=== PATIENT | male | born 1960 | race Caucasian/White ===

== ENCOUNTER 2017-11-07 13:17 | Inpatient (IN) | payer OTHER ==
[~2017-11-07] VITALS: Ht 162.6 cm; Wt 69.1 kg
[2017-11-07] VITALS (14 sets, daily range): BP systolic 94–140; BP diastolic 60–96
[2017-11-07 13:58] LABS: INTER. NORMALIZED RATIO 1.5
[2017-11-07 14:00] LABS: HEMATOCRIT 19.3 % (38.0-50.0); MCH 27.7 PG (29.0-34.0); MCHC 32.1 G/DL (30.0-36.0); MCV 86.2 FL (86-99); PLATELET COUNT 293 K/uL (156-360); RBC DIS.WIDTH-CV 16.1 % (11.8-14.6); RBC DIS.WIDTH-SD 50.4 % (39-53); RED BLOOD COUNT 2.24 M/uL (4.00-5.50); WHITE BLOOD COUNT 26.2 K/uL (4.1-10.2)
[2017-11-07 14:01] LABS: HEMOGLOBIN 6.2 G/DL (12.5-16.6)
[2017-11-07 14:03] LABS: ALBUMIN 2.3 g/dL (3.2-4.8); CHLORIDE 107 mEq/L (99-109); POTASSIUM 5.8 mEq/L (3.7-5.4); SODIUM 140 mEq/L (136-147)
[2017-11-07 14:05] LABS: GLUCOSE 94 mg/dL (70-99)
[2017-11-07 14:07] LABS: TOTAL BILIRUBIN 0.7 mg/dL (0.0-1.0)
[2017-11-07 14:09] LABS: ALKALINE PHOSPHATASE 66 IU/L (3-129); CREATININE 1.9 mg/dL (0.6-1.3)
[2017-11-07 14:10] LABS: UREA NITROGEN (BUN) 73 mg/dL (9-23)
[2017-11-07 14:11] LABS: AST (GOT) 31 IU/L (2-34)
[2017-11-07 14:12] LABS: TROP-I INTERPRETATION NEGATIVE; TROPONIN-I 0.01 ng/mL (0.0-0.30)
[2017-11-07 14:12] LABS: ALT (GPT) 18 IU/L (3-49)
[2017-11-07 14:14] LABS: GFR ESTIMATE (CALCULATED) 39 mL/min/ (58.99-99999)
[2017-11-07] MEDS ORDERED: ADVIL,NUPRIN,M200 MG PO (16:19)
[2017-11-07] MEDS ORDERED: ALDACTONE25 MG PO (16:19)
[2017-11-07] MEDS ORDERED: OXYCODONE HCL5 MG PO (16:19)
[2017-11-07] MEDS ORDERED: INDERAL10 MG PO (16:20)
[2017-11-07] MEDS ORDERED: ADULT ASPIRIN R81 MG PO (16:20)
[2017-11-07] MEDS ORDERED: PROTONIX40 MG PO (16:20)
[2017-11-08] VITALS (25 sets, daily range): BP systolic 85–139; BP diastolic 44–85
[2017-11-08 05:47] LABS: INTER. NORMALIZED RATIO 1.4
[2017-11-08 05:50] LABS: HEMATOCRIT 31.7 % (38.0-50.0); HEMOGLOBIN 10.5 G/DL (12.5-16.6); MCHC 33.1 G/DL (30.0-36.0); MCV 87.6 FL (86-99); NRBC (%) 0.1 /100 WBC (0-0); PLATELET COUNT 241 K/uL (156-360); RBC DIS.WIDTH-CV 15.1 % (11.8-14.6); RED BLOOD COUNT 3.62 M/uL (4.00-5.50); WHITE BLOOD COUNT 20.1 K/uL (4.1-10.2)
[2017-11-08 06:11] LABS: ALBUMIN 2.5 G/DL (3.2-4.8); ALKALINE PHOSPHATASE 72 IU/L (3-129); ALT (GPT) 17 IU/L (3-49); AST (GOT) 30 IU/L (2-34); CHLORIDE 108 MEQ/L (99-109); GLUCOSE 98 mg/dL (70-99); SODIUM 141 MEQ/L (136-147); TOTAL BILIRUBIN 1.7 MG/DL (0.0-1.0); TOTAL PROTEIN 5.7 G/DL (6.4-8.3); UREA NITROGEN (BUN) 52 mg/dL (9-23)
[2017-11-08 06:14] LABS: CREATININE 1.2 MG/DL (0.6-1.3); GFR ESTIMATE (CALCULATED) > 59 mL/min/ (58.99-99999); POTASSIUM 4.1 MEQ/L (3.7-5.4)
[2017-11-08 19:03] LABS: HEMATOCRIT 33.1 % (38.0-50.0); MCH 29.1 PG (29.0-34.0); MCHC 33.2 G/DL (30.0-36.0); MCV 87.6 FL (86-99); PLATELET COUNT 229 K/uL (156-360); RBC DIS.WIDTH-CV 15.4 % (11.8-14.6); RBC DIS.WIDTH-SD 49.2 % (39-53); RED BLOOD COUNT 3.78 M/uL (4.00-5.50); WHITE BLOOD COUNT 21.9 K/uL (4.1-10.2)
[2017-11-08 19:52] LABS: ABS NEUTROPHIL COUNT 19.8; BAND NEUTROPHILS 58.3 % (0-8.0); BURR CELLS 1+; EOSINOPHIL ABS CT 0.3; EOSINOPHILS 1.3 % (0-5.0); METAMYELOCYTES 1.3 %; MONOCYTES 3.4 % (0-9.0); MYELOCYTES 0.4 %; PLAT.SUFFICIENCY ADEQUATE; POIKILOCYTOSIS 1+; SEG.NEUTROPHILS 32.3 % (46.0-76.0)
[2017-11-09] VITALS (17 sets, daily range): BP systolic 105–132; BP diastolic 52–76
[2017-11-09 05:59] LABS: ALKALINE PHOSPHATASE 58 IU/L (3-129); ALT (GPT) 13 IU/L (3-49); AST (GOT) 22 IU/L (2-34); CHLORIDE 109 MEQ/L (99-109); CREATININE 0.8 MG/DL (0.6-1.3); GFR ESTIMATE (CALCULATED) > 59 mL/min/ (58.99-99999); GLUCOSE 103 mg/dL (70-99); MAGNESIUM 1.5 mg/dl (1.3-2.7); POTASSIUM 3.5 MEQ/L (3.7-5.4); SODIUM 140 MEQ/L (136-147); TOTAL PROTEIN 4.9 G/DL (6.4-8.3); UREA NITROGEN (BUN) 26 mg/dL (9-23)
[2017-11-09 06:09] LABS: ABS NEUTROPHIL COUNT 16.8; EOSINOPHIL ABS CT 0; GIANT PLATELETS 1+; HEMATOCRIT 28.5 % (38.0-50.0); HEMOGLOBIN 9.5 G/DL (12.5-16.6); LYMPHOCYTES 1.7 % (15.0-45.0); MCHC 33.3 G/DL (30.0-36.0); MCV 86.9 FL (86-99); PLAT.SUFFICIENCY ADEQUATE; PLATELET COUNT 205 K/uL (156-360); RBC DIS.WIDTH-CV 15.8 % (11.8-14.6); RBC DIS.WIDTH-SD 49.6 % (39-53); RED BLOOD COUNT 3.28 M/uL (4.00-5.50); WHITE BLOOD COUNT 17.1 K/uL (4.1-10.2)
[2017-11-09 06:10] LABS: BAND NEUTROPHILS 17.4 % (0-8.0); SEG.NEUTROPHILS 80.9 % (46.0-76.0)
[2017-11-09 18:26] LABS: INTER. NORMALIZED RATIO 1.7
[2017-11-09 18:29] LABS: PTT 36.5 SEC (25-37)
[2017-11-10] VITALS (9 sets, daily range): BP systolic 91–124; BP diastolic 52–92
[2017-11-10 06:10] LABS: HEMATOCRIT 32.1 % (38.0-50.0); HEMOGLOBIN 10.5 G/DL (12.5-16.6); MCH 28.8 PG (29.0-34.0); MCHC 32.7 G/DL (30.0-36.0); MCV 88.2 FL (86-99); PLATELET COUNT 203 K/uL (156-360); RBC DIS.WIDTH-CV 16.3 % (11.8-14.6); RBC DIS.WIDTH-SD 51.2 % (39-53); RED BLOOD COUNT 3.64 M/uL (4.00-5.50); WHITE BLOOD COUNT 12.9 K/uL (4.1-10.2)
[2017-11-10 06:40] LABS: BASOPHIL (%) 0.5 % (0-1); BASOPHIL COUNT 0.1 K/uL (0-0.1); EOSINOPHIL (%) 1.9 % (0-5); EOSINOPHIL COUNT 0.2 K/uL (0-0.3); IMMATURE GRANULOCYTE (%) 0.9 % (0.0-0.7); LYMPHOCYTE (%) 16.4 % (15-42); LYMPHOCYTE COUNT 2.1 K/uL (1.0-2.8); MONOCYTE (%) 6.3 % (3-12); MONOCYTE COUNT 0.8 K/uL (0-0.8); NEUTROPHIL COUNT 9.5 K/uL (1.8-6.4)
[2017-11-10 06:41] LABS: ALKALINE PHOSPHATASE 62 IU/L (3-129); ALT (GPT) 14 IU/L (3-49); AST (GOT) 24 IU/L (2-34); CHLORIDE 108 MEQ/L (99-109); CREATININE 0.9 MG/DL (0.6-1.3); GFR ESTIMATE (CALCULATED) > 59 mL/min/ (58.99-99999); GLUCOSE 93 mg/dL (70-99); POTASSIUM 3.4 MEQ/L (3.7-5.4); SODIUM 140 MEQ/L (136-147); TOTAL PROTEIN 5.2 G/DL (6.4-8.3); UREA NITROGEN (BUN) 18 mg/dL (9-23)
[2017-11-10 06:42] LABS: TOTAL BILIRUBIN 3.5 MG/DL (0.0-1.0)
[2017-11-10 14:35] LABS: HEMATOCRIT 30.5 % (38.0-50.0); HEMOGLOBIN 10.1 G/DL (12.5-16.6); MCH 29.7 PG (29.0-34.0); MCHC 33.1 G/DL (30.0-36.0); MCV 89.7 FL (86-99); PLATELET COUNT 180 K/uL (156-360); RBC DIS.WIDTH-CV 16.7 % (11.8-14.6); RBC DIS.WIDTH-SD 53.5 % (39-53); WHITE BLOOD COUNT 12.2 K/uL (4.1-10.2)
[2017-11-10 15:04] LABS: ABS NEUTROPHIL COUNT 10.8; ANISOCYTOSIS 1+; ATYPICAL LYMPHOCYTE 0.9 %; BAND NEUTROPHILS 28.9 % (0-8.0); BURR CELLS 1+; EOSINOPHIL ABS CT 0; LYMPHOCYTES 1.8 % (15.0-45.0); MACROCYTES 1+; MONOCYTES 8.8 % (0-9.0); PLAT.SUFFICIENCY ADEQUATE; POIKILOCYTOSIS 1+; POLYCHROMASIA 1+
[2017-11-10 15:06] LABS: SEG.NEUTROPHILS 59.6 % (46.0-76.0)
[2017-11-11 04:39] VITALS: BP 120/65
[2017-11-11 06:13] LABS: BASOPHIL COUNT 0.1 K/uL (0-0.1); EOSINOPHIL (%) 3.8 % (0-5); EOSINOPHIL COUNT 0.3 K/uL (0-0.3); HEMATOCRIT 30.6 % (38.0-50.0); IMMATURE GRANULOCYTE (%) 1.6 % (0.0-0.7); LYMPHOCYTE (%) 14.4 % (15-42); LYMPHOCYTE COUNT 1.2 K/uL (1.0-2.8); MCH 29.2 PG (29.0-34.0); MCHC 32.7 G/DL (30.0-36.0); MCV 89.2 FL (86-99); MONOCYTE (%) 20.4 % (3-12); MONOCYTE COUNT 1.6 K/uL (0-0.8); NEUTROPHIL (%) 58.8 % (45-76); NEUTROPHIL COUNT 4.7 K/uL (1.8-6.4); PLATELET COUNT 186 K/uL (156-360); RBC DIS.WIDTH-CV 16.8 % (11.8-14.6); RBC DIS.WIDTH-SD 53.7 % (39-53); RED BLOOD COUNT 3.43 M/uL (4.00-5.50)
[2017-11-11 06:53] LABS: ALBUMIN 1.9 G/DL (3.2-4.8); ALT (GPT) 12 IU/L (3-49); AST (GOT) 25 IU/L (2-34); CHLORIDE 108 MEQ/L (99-109); CREATININE 0.7 MG/DL (0.6-1.3); GFR ESTIMATE (CALCULATED) > 59 mL/min/ (58.99-99999); GLUCOSE 97 mg/dL (70-99); POTASSIUM 3.6 MEQ/L (3.7-5.4); SODIUM 138 MEQ/L (136-147); TOTAL PROTEIN 4.9 G/DL (6.4-8.3); UREA NITROGEN (BUN) 12 mg/dL (9-23)
[2017-11-11 06:54] LABS: ALKALINE PHOSPHATASE 59 IU/L (3-129); TOTAL BILIRUBIN 4.3 MG/DL (0.0-1.0)
[2017-11-11 07:42] VITALS: BP 117/69
[2017-11-11 11:49] VITALS: BP 158/66
[2017-11-11 15:56] VITALS: BP 132/73
[2017-11-11 19:06] VITALS: BP 136/79
[2017-11-12 00:09] VITALS: BP 127/81
[2017-11-12 03:27] VITALS: BP 113/64
[2017-11-12 08:06] VITALS: BP 105/61
[2017-11-12 09:00] LABS: HEMATOCRIT 29.6 % (38.0-50.0); HEMOGLOBIN 9.6 G/DL (12.5-16.6); MCHC 32.4 G/DL (30.0-36.0); MCV 89.4 FL (86-99); PLATELET COUNT 202 K/uL (156-360); RBC DIS.WIDTH-CV 17.2 % (11.8-14.6); RBC DIS.WIDTH-SD 55.5 % (39-53); RED BLOOD COUNT 3.31 M/uL (4.00-5.50); WHITE BLOOD COUNT 6.8 K/uL (4.1-10.2)
[2017-11-12 09:19] LABS: CHLORIDE 107 MEQ/L (99-109); CREATININE 0.9 MG/DL (0.6-1.3); GFR ESTIMATE (CALCULATED) > 59 mL/min/ (58.99-99999); GLUCOSE 101 mg/dL (70-99); POTASSIUM 3.5 MEQ/L (3.7-5.4); SODIUM 138 MEQ/L (136-147); UREA NITROGEN (BUN) 11 mg/dL (9-23)
[2017-11-12 09:30] LABS: ABS NEUTROPHIL COUNT 5.7; ANISOCYTOSIS 1+; ATYPICAL LYMPHOCYTE 0.9 %; BASOPHILS 0.9 %; BURR CELLS 1+; EOSINOPHIL ABS CT 0.1; EOSINOPHILS 0.9 % (0-5.0); LYMPHOCYTES 4.4 % (15.0-45.0); MACROCYTES 1+; METAMYELOCYTES 4.5 %; MONOCYTES 4.5 % (0-9.0); OVALOCYTES 1+; PLAT.SUFFICIENCY ADEQUATE; POIKILOCYTOSIS 2+; SMUDGE CELLS 8.9
[2017-11-12 10:27] LABS: BAND NEUTROPHILS 0.9 % (0-8.0)
[2017-11-12 11:20] VITALS: BP 128/78
[2017-11-12 15:47] VITALS: BP 114/56
[2017-11-12 19:57] VITALS: BP 109/62
[2017-11-13 00:06] VITALS: BP 115/60
[2017-11-13 03:51] VITALS: BP 102/70
[2017-11-13 07:10] VITALS: BP 101/59
[2017-11-13 12:09] VITALS: BP 108/59
[2017-11-13 16:21] VITALS: BP 98/58
[2017-11-13 19:51] VITALS: BP 102/64
[2017-11-14 00:39] VITALS: BP 115/59
[2017-11-14 03:36] VITALS: BP 86/50
[2017-11-14 03:55] VITALS: BP 105/62
[2017-11-14 07:16] VITALS: BP 122/70
[2017-11-14 10:36] LABS: TYPE OF FLUID PARACENTESIS
[2017-11-14 11:27] LABS: APPEARANCE YELLOW-CLEAR; BODY FLUID EOSINOPHILS 0 % (0-25); BODY FLUID RBC'S < 1000 /MM^3 (0-100); BODY FLUID WBC'S 100 /MM^3 (0-500); MONONUCLEAR WBC'S 2 %; POLYNUCLEAR WBC'S 98 % (0-25)
[2017-11-14] MEDS ORDERED: AUGMENTIN875 MG PO (11:31)
[2017-11-14 11:34] LABS: BODY FLUID PROTEIN < 3.0 G/DL
[2017-11-14 12:01] LABS: HEMOGLOBIN 10.4 G/DL (12.5-16.6); MCH 28.9 PG (29.0-34.0); MCHC 32.5 G/DL (30.0-36.0); MCV 88.9 FL (86-99); PLATELET COUNT 283 K/uL (156-360); RBC DIS.WIDTH-CV 18.4 % (11.8-14.6); RBC DIS.WIDTH-SD 58.1 % (39-53); WHITE BLOOD COUNT 9.6 K/uL (4.1-10.2)
[2017-11-14 12:20] VITALS: BP 118/62
[2017-11-14 12:29] LABS: CHLORIDE 107 MEQ/L (99-109); CREATININE 0.9 MG/DL (0.6-1.3); GFR ESTIMATE (CALCULATED) > 59 mL/min/ (58.99-99999); GLUCOSE 126 mg/dL (70-99); POTASSIUM 4.1 MEQ/L (3.7-5.4); SODIUM 138 MEQ/L (136-147); UREA NITROGEN (BUN) 10 mg/dL (9-23)
[2017-11-14 12:31] LABS: ABS NEUTROPHIL COUNT 8.6; ANISOCYTOSIS 1+; BAND NEUTROPHILS 2.6 % (0-8.0); EOSINOPHIL ABS CT 0.2; EOSINOPHILS 2.6 % (0-5.0); LYMPHOCYTES 5.2 % (15.0-45.0); METAMYELOCYTES 0.9 %; MONOCYTES 1.7 % (0-9.0)
[2017-11-14 13:27] LABS: COMMENT MANY MESOTHELIAL CEL
== END 2017-11-14 17:56 | disposition home or self-care (01) | DRG 368 ==
LOC: EME 13:17 → EDOF 15:49 → 4EAST 15:49 → 4WEST 15:49 → ENRESERV 15:52 → 4WEST 18:04 → EME 11-08 08:00 → 4WEST 11-08 13:02 → ENRESERV 11-10 05:46 → 4EAST 11-10 07:22 → ENRESERV 11-12 10:07 → 2EASTP 11-12 11:21
PROVIDERS: Emergency Medicine; Internal Medicine; Internal Medicine Critical Care Medicine; Internal Medicine Gastroenterology
PROC: 06L38CZ Occlusion of Esophageal Vein with Extraluminal Device, Via Natural or Artificial Opening Endoscopic (ICD-10-PCS; 2017-11-07)
PROC: 0W9G3ZZ Drainage of Peritoneal Cavity, Percutaneous Approach (ICD-10-PCS; principal; 2017-11-14)
DX: I85.01 Esophageal varices with bleeding (principal); D62 Acute posthemorrhagic anemia; K74.60 Unspecified cirrhosis of liver; J15.9 Unspecified bacterial pneumonia; J96.01 Acute respiratory failure with hypoxia; K22.70 Barrett's esophagus without dysplasia; B18.2 Chronic viral hepatitis C; E87.2 Acidosis; F10.10 Alcohol abuse, uncomplicated; Z85.01 Personal history of malignant neoplasm of esophagus; Z87.891 Personal history of nicotine dependence; Z79.899 Other long term (current) drug therapy; K76.6 Portal hypertension; Z85.818 Personal history of malignant neoplasm of other sites of lip, oral cavity, and pharynx; K70.31 Alcoholic cirrhosis of liver with ascites; K92.0 Hematemesis; K80.20 Calculus of gallbladder without cholecystitis without obstruction
CPT/HCPCS: 49083; 71045; 71046; 74176; 80048; 80053; 81003; 82105 90; 83605; 83735; 84100; 84157; 84484; 85025; 85025 91; 85027; 85610; 85730; 86850; 86900; 86901; 86920; 87040; 87070; 87205; 87641; 89051; 93005; 94760; 94799; 99281; 99285; C1751; C9113; J0295; J2354; J2765; J2997; J3475; J3480; J7030; J7050; J7120; P9016; P9017

== ENCOUNTER → 2017-11-27 | Outpatient (CLI) | payer OTHER ==
[~2017-11-27] MED LIST: ADULT ASPIRIN R81 MG PO; ADVIL,NUPRIN,M200 MG PO; ALDACTONE25 MG PO; AUGMENTIN875 MG PO; INDERAL10 MG PO; OXYCODONE HCL5 MG PO; PROTONIX40 MG PO
== END | disposition home or self-care (01) ==
LOC: RAD 08:30
PROC: 0W9G3ZZ Drainage of Peritoneal Cavity, Percutaneous Approach (ICD-10-PCS; principal; 2017-11-27)
DX: R18.8 Other ascites (principal)
CPT/HCPCS: 49083

== ENCOUNTER 2017-12-22 14:07 | Day surgery (SDC) | payer OTHER ==
[~2017-12-22] VITALS: Ht 162.6 cm; Wt 53.5 kg
[~2017-12-22 14:07] MED LIST changes: +ALA-CORT30 GM TP; +ALDACTONE100 MG PO; +COMPAZINE10 MG PO; +MORGIDOX100 MG PO; +OXYCODONE HCL10 MG PO; +OXYCONTIN15 MG PO; +XYLOCAINE VISC100 ML PO
[2017-12-22 14:48] VITALS: BP 103/71
[2017-12-22 20:05] VITALS: BP 130/86
[2017-12-22 20:28] VITALS: BP 120/70
== END 2017-12-22 20:45 | disposition home or self-care (01) ==
LOC: SDC 14:07
PROC: B5171ZA Fluoroscopy of Left Subclavian Vein using Low Osmolar Contrast, Guidance (ICD-10-PCS; principal; 2017-12-22)
PROC: 0DH63UZ Insertion of Feeding Device into Stomach, Percutaneous Approach (ICD-10-PCS; principal; 2017-12-22)
PROC: 05H633Z Insertion of Infusion Device into Left Subclavian Vein, Percutaneous Approach (ICD-10-PCS; principal; 2017-12-22)
DX: R13.10 Dysphagia, unspecified (principal); R47.02 Dysphasia; I87.8 Other specified disorders of veins; C76.0 Malignant neoplasm of head, face and neck; K31.1 Adult hypertrophic pyloric stenosis; Z92.3 Personal history of irradiation; Z92.21 Personal history of antineoplastic chemotherapy; B19.20 Unspecified viral hepatitis C without hepatic coma; K70.11 Alcoholic hepatitis with ascites; F10.11 Alcohol abuse, in remission; K22.70 Barrett's esophagus without dysplasia; Z86.73 Personal history of transient ischemic attack (TIA), and cerebral infarction without residual deficits
CPT/HCPCS: 71045; 93005; C1751; J0690; J2250; J3010